=== PATIENT | female | born 1975 | race Caucasian/White ===

== ENCOUNTER 2022-09-10 21:46 | Emergency (ER) | payer OTHER ==
[~2022-09-10] VITALS: Ht 157.5 cm; Wt 90.7 kg
[2022-09-10 21:51] VITALS: BP 132/72
--- NOTE | 2022-09-10 21:56 | NUR ---
to bed ambulatory
--- NOTE | 2022-09-10 21:58 | NUR ---
pt is came in with laceration on the above the forehead. Blood is noted. Pt is alert and oriented x4. Pt follow command and answers questions.
[2022-09-10] MEDS ORDERED: LIDOCAINE/EPI MPF 1%1:200000 30 ML VIAL INJ ONE (22:15)
[2022-09-10] MEDS ORDERED: LIDOCAINE MPF 1% 5 ML ONE (22:16)
--- NOTE | 2022-09-10 22:31 | NUR ---
Dr. Garcia examining patient.
[2022-09-11] MEDS ORDERED: ONDA-188 PO
[2022-09-11] MEDS ORDERED: IBUP-2213 PO
[2022-09-11] MEDS ORDERED: IBUPROFEN 600 MG TAB PO ONE (00:05)
[2022-09-11] MEDS ORDERED: LIDOCAINE 1% 500 MG/ 50 ML VIAL INJ ONE (00:30)
[2022-09-11 01:03] VITALS: BP 132/72
--- NOTE | 2022-09-11 01:04 | NUR ---
Patient discharged with v/s stable. Written and verbal after care instructions given and explained. Patient verbalized understanding. Ambulatory with steady gait. All questions addressed prior to discharge. Advised to follow up with PMD. pt left with her beloning, pt improves after pain meds
== END 2022-09-11 01:04 | disposition home or self-care (01) ==
LOC: MED 21:46
DX: S01.01XA Laceration without foreign body of scalp, initial encounter (principal); Z79.899 Other long term (current) drug therapy; Z79.1 Long term (current) use of non-steroidal anti-inflammatories (NSAID); W01.0XXA Fall on same level from slipping, tripping and stumbling without subsequent striking against object, initial encounter; Y92.89 Other specified places as the place of occurrence of the external cause; Y93.89 Activity, other specified; Y99.8 Other external cause status
CPT/HCPCS: 12002; 70450; 81025; 90471; 90715; 99285; J2001

== ENCOUNTER 2022-09-27 18:13 | Emergency (ER) | payer OTHER ==
[~2022-09-27] VITALS: Ht 157.5 cm; Wt 103.9 kg
[~2022-09-27 18:13] MED LIST: IBUP-2213 PO; ONDA-188 PO
[2022-09-27 18:17] VITALS: BP 143/54
--- NOTE | 2022-09-27 18:36 | NUR ---
Patient discharged with v/s stable. Written and verbal after care instructions given and explained. Patient verbalized understanding. Ambulatory with steady gait. All questions addressed prior to discharge. Advised to follow up with PMD.
--- NOTE | 2022-09-27 18:36 | NUR ---
47/F PRESENTS TO ED FOR STAPLE REMOVAL, PLACED BY DR HERBERT ON 09/10/22 FOR SCALP LAC. NO REDNESS, SWELLING NOTED, [address] DENIES ANY NAUSEA, VOMITING OR PAIN. NKA PMH: DENIES
== END 2022-09-27 18:36 | disposition home or self-care (01) ==
LOC: MED 18:13
DX: S01.01XD Laceration without foreign body of scalp, subsequent encounter (principal); Z48.02 Encounter for removal of sutures; X58.XXXD Exposure to other specified factors, subsequent encounter
CPT/HCPCS: 99281

== ENCOUNTER 2022-12-08 22:00 | Emergency (ER) | payer OTHER ==
[~2022-12-08] VITALS: Ht 154.9 cm; Wt 108.0 kg
[2022-12-08 22:07] VITALS: BP 132/65
--- NOTE | 2022-12-09 00:07 | NUR ---
PT AMBULATORY TO BED 2
[2022-12-09] MEDS ORDERED: NACL 0.9% 2,500 ML IV ONE (00:20)
[2022-12-09] MEDS ORDERED: MORPHINE SULFATE 4 MG/ML SYR IVP ONE (00:20)
[2022-12-09] MEDS ORDERED: ONDANSETRON 4 MG/2 ML VIAL IVP ONE (00:20)
[2022-12-09] MEDS ORDERED: ACETAMINOPHEN EXTRA STRENGTH 500 MG TAB PO ONE (00:20)
--- NOTE | 2022-12-09 00:20 | NUR ---
c/o bilateral flank pain and fever x 2 days. per pt, c/o burning when urinating. pmhx: kidney infection. NKDA.
--- NOTE | 2022-12-09 00:30 | NUR ---
AT THE BEDSIDE.
[2022-12-09 00:40] LABS: BASOPHILS % (AUTO) 0.4 % (0.0-2.0); EOSINOPHILS # (AUTO) 0.3 K/uL (0-0.4); EOSINOPHILS % (AUTO) 2.1 % (0.0-4.0); HEMATOCRIT 35.8 % (36-48); HEMOGLOBIN 11.9 g/dL (12.0-16.0); LYMPHOCYTES # (AUTO) 2.5 K/uL (2.5-16.5); LYMPHOCYTES % (AUTO) 18.7 % (20.5-51.1); MEAN CORPUSCULAR HEMOGLOBIN 27 pg (27-31); MEAN CORPUSCULAR HGB CONC 33 g/dL (33-37); MEAN CORPUSCULAR VOLUME 80.8 fL (80-94); MONOCYTES % (AUTO) 7.6 % (1.7-9.3); NEUTROPHILS # (AUTO) 9.7 K/uL (1.8-7.7); NEUTROPHILS % (AUTO) 71.2 % (42.2-75.2); PLATELET COUNT (AUTO) 199 K/uL (140-450); RED BLOOD CELL COUNT(AUTO) 4.43 MIL/uL (4.20-5.40); RED CELL DISTRIBUTION WIDTH 15.7 % (11.6-13.7); WHITE BLOOD COUNT (AUTO) 13.6 K/uL (4.8-10.8)
[2022-12-09 00:40] LABS: APPEARANCE,URINE SL CLOUDY (CLEAR); BILIRUBIN,URINE NEGATIVE (NEGATIVE); BLOOD, URINE 2+ (NEGATIVE); COLOR,URINE YELLOW (YELLOW); LEUKOCYTE ESTERASE ,URINE 3+ (NEGATIVE); NITRITE, URINE NEGATIVE (NEGATIVE); UGLUCOSE NEGATIVE (NEGATIVE)
[2022-12-09] MEDS ORDERED: cefTRIAXone 1,000 MG VIAL ONE (00:47)
[2022-12-09 00:59] LABS: ALBUMIN 3.8 g/dL (3.4-5.0); ANION GAP 11.1 (8-16); CARBON DIOXIDE 30.1 mmol/L (21-32); POTASSIUM 4.2 mmol/L (3.5-5.1); TOTAL BILIRUBIN 0.7 mg/dL (0.0-1.0)
[2022-12-09 01:05] VITALS: BP 137/56
[2022-12-09 01:08] LABS: RBC,URINE 0-5 /HPF (0-5); WBC,URINE TOO MANY TO COUNT /HPF (0-5)
[2022-12-09 01:29] LABS: CREATININE 0.8 mg/dL (0.6-1.3)
[2022-12-09] MEDS ORDERED: SUD30 PO (01:40)
[2022-12-09] MEDS ORDERED: CIPR500T4 PO (01:40)
[2022-12-09] MEDS ORDERED: TRAM50TA3 PO (01:40)
[2022-12-09] MEDS ORDERED: IBUP-2213 PO (01:40)
--- NOTE | 2022-12-09 01:54 | NUR ---
IV removed, catheter intact and site benign. Applied folded 4x4 gauze and tape to stop bleeding.
--- NOTE | 2022-12-09 01:57 | NUR ---
Patient discharged. Written and verbal after care instructions given and explained. Patient alert, oriented and verbalized understanding of instructions. Ambulatory with steady gait. All questions addressed prior to discharge. ID band removed. Patient advised to follow up with PMD. Rx of Ciprofloxacin HCl, Ibuprofen, Sudafed, Tramadol HCl given. Patient educated on indication of medication including possible reaction and side effects. Opportunity to ask questions provided and answered.
== END 2022-12-09 01:57 | disposition home or self-care (01) ==
LOC: MED 22:00
DX: N12 Tubulo-interstitial nephritis, not specified as acute or chronic (principal); Z79.899 Other long term (current) drug therapy
CPT/HCPCS: 36415; 71045; 80053; 81001; 82550; 82553; 83605; 83880; 84484; 85025; 87040; 87086; 93005; 96365; 96368; 96375; 99285; J0696; J2270; J2405; J7030; Q0092